=== PATIENT | male | born 1955 | race Caucasian/White ===

== ENCOUNTER → 2025-05-24 | Outpatient (CLI) | payer MEDICARE | LOC: M RAD 06:47 | PROVIDERS: ATTEND Orthopaedic Surgery | DX: M25.78 Osteophyte, vertebrae (principal); M48.061 Spinal stenosis, lumbar region without neurogenic claudication; M47.26 Other spondylosis with radiculopathy, lumbar region; Z98.1 Arthrodesis status ==

== ENCOUNTER → 2025-06-23 | Outpatient (CLI) | payer MEDICARE | LOC: M RAD 07:51 | PROVIDERS: ATTEND Orthopaedic Surgery | DX: M48.02 Spinal stenosis, cervical region (principal); M48.04 Spinal stenosis, thoracic region; M47.813 Spondylosis without myelopathy or radiculopathy, cervicothoracic region ==